=== PATIENT | female | born 1980 | race American Indian/Alaskan Native ===

== ENCOUNTER 2018-06-16 10:07 | Outpatient (CLI) | payer OTHER ==
--- NOTE | 2018-06-17 10:12 | Ultrasound Report ---
BILATERAL BREAST ULTRASOUND: 06/16/18 10:07:00 CLINICAL: 37-year-old with history of bilateral breast tenderness and abnormal bilateral breast ultrasound. She had a negative bilateral mammogram in [place] in July 2016 and a [facility] bilateral breast ultrasound in November 2017 which reported bilateral cysts. A note describes the findings of a 2.5 x 0.9 cm right breast cyst at 8 o'clock and a 1.4 x 0.8 cm ill-defined left hypoechoic lesion at 1 o'clock suspicious for fibroadenoma. The note note also describes two left cysts located at 2 o'clock. COMPARISON: 03/12/18 [facility] mammogram but no earlier mammogram and no [facility] images. FINDINGS: Ultrasound of both breasts(including all four quadrants and the retroareolar area of each breast) was performed. Right: Benign cyst at 7 o'clock 5 cm from the nipple measuring 7 x 6 x 6 mm. Benign cysts at 8 o'clock 4 cm from the nipple measuring 7 x 7 x 5 mm and 5 x 4 mm. No solid mass or shadowing. Ultrasound of the right axilla is negative. Left: Benign cyst 1 o'clock 3 cm from the nipple measuring 1.1 x 1.0 x 0.8 cm. The left breast is otherwise negative. No solid mass or shadowing. Ultrasound of the left axilla is negative. IMPRESSION:Bilateral benign cysts. RECOMMENDATION: Clinical followup and routine mammographic screening.
== END 2018-06-16 10:08 | disposition home or self-care (01) ==
LOC: SPVWC 10:07
PROVIDERS: ATTEND Surgery
DX: N60.01 Solitary cyst of right breast (principal); N60.02 Solitary cyst of left breast

== ENCOUNTER 2019-05-25 14:11 | Outpatient (CLI) | payer OTHER ==
--- NOTE | 2019-05-25 15:26 | Mammography Report ---
DIGITAL SCREENING MAMMOGRAM WITH CAD, 05/25/2019 INDICATION: Routine screening mammography. and breast-feeding. History of bilateral axilla ry fullness. TECHNIQUE: Digital bilateral 2D mammography was obtained in the craniocaudal and mediolateral obliq ue projections. This examination was interpreted with the benefit of Computer-Aided Detection analysi s. COMPARISON: 03/12/2018 FINDINGS: Breast Density: The breasts are heterogeneously dense, which may obscure small masses. There is no evidence of dominant mass, suspicious calcifications or architectural distortion in eithe r breast. A right outer biopsy clip and a few stable low-density calcifications at the clip. No suspi cious axillary lymph nodes. IMPRESSION: No mammographic evidence of malignancy. Follow up recommendation: Routine yearly BI-RADS Category 2: Benign. A "normal" or negative report should not discourage follow up or biopsy of a clinically significant f inding. A written summary of these findings will be mailed to the patient. The patient will be entered into a mammography reporting system which will generate a reminder letter for the patient's next appointmen t at the appropriate interval. The [employer] recommends yearly mammograms starting at age 40 and continuing as l starla as a woman is in good health. Breast MRI is recommended for women with an approximate 20-25% or greater lifetime risk of breast cancer, including women with a strong family history of breast or ova escobar cancer or who have been treated for Hodgkin's disease. Signer Name: Viraj Box MD Signed: 05/25/2019 3:21 PM Workstation Name: [id number]
== END 2019-05-25 14:12 | disposition home or self-care (01) ==
LOC: SPVWC 14:11
PROVIDERS: ATTEND Surgery
DX: Z12.31 Encounter for screening mammogram for malignant neoplasm of breast (principal)
CPT/HCPCS: 77067

== ENCOUNTER 2019-11-30 14:24 | Outpatient (CLI) | payer OTHER ==
--- NOTE | 2019-11-30 15:54 | Ultrasound Report ---
EXAMINATION: Left Limited axillary Ultrasound, 11/30/2019 INDICATION: Recent history of left axillary palpable abnormality, currently not obvious, patient is b reast-feeding COMPARISON: Bilateral breast ultrasound 06/16/2018, bilateral mammogram 05/25/2019 FINDINGS: Targeted ultrasound evaluation was performed of the area of interest. Examination of the le ft axilla shows several small lymph nodes which were not clearly seen on the prior ultrasound though small nodes were present by mammogram in May. The largest node has a short axis diameter of only 6 mm and all have obvious fatty danielle good differentiation between the danielle and the cortices. Several of these nodes show borderline cortical thickening at 3 mm with one node showing 5 mm thickness. IMPRESSION: Nonenlarged left axillary lymph nodes are seen with an appearance suggesting reactive nod es, less likely a neoplastic process. Follow up recommendation: Left axillary ultrasound in 3 months BIRADS: 3: Probably benign Signer Name: Jeremías Menchaca MD Signed: 11/30/2019 3:49 PM Workstation Name: [id number]
== END 2019-11-30 14:25 | disposition home or self-care (01) ==
LOC: SPVWC 14:24
PROVIDERS: ATTEND Surgery
DX: R59.0 Localized enlarged lymph nodes (principal); N60.32 Fibrosclerosis of left breast; N60.31 Fibrosclerosis of right breast

== ENCOUNTER 2020-02-29 14:21 | Outpatient (CLI) | payer OTHER ==
--- NOTE | 2020-03-02 09:19 | Ultrasound Report ---
ULTRASOUND AXILLA BILATERAL LIMITED, 03/01/2020 CLINICAL INFORMATION / INDICATION: Follow-up mildly abnormal axillary lymph nodes. TECHNIQUE: Targeted ultrasound evaluation was performed of the area of interest. COMPARISON: Bilateral axillary ultrasound 11/30/2019 FINDINGS: In the left axilla multiple nodes are again seen with the largest having a short axis diameter of 8 m m. Large fatty danielle are seen. Cortices show only borderline prominence to approximately 3 mm similar to prior study. In the right axilla similar benign-appearing lymph nodes are seen with the largest having a short axi s diameter of 8 mm. Large fatty danielle are seen. Borderline cortical thickening is seen to less than 4 mm. General pattern is similar to prior study without significant change considering differences in m easurement technique. Note: Previous report of 11/30/2019 only listed the left axilla but should have included the right axil la as images were obtained at that time. Patient initially had a left axillary ultrasound on 0 but on discovery of the report discrepancy, I asked for the patient to return today for additional imaging on the right. IMPRESSION: Bilateral axillary nodes continue to have a benign and perhaps slightly reactive appearan ce. I would suggest additional bilateral axillary ultrasound in 6 months but doubt these are signific ant. Follow up recommendation: As above BI-RADS Category 3: Probably Benign. Followup in 6 months. A normal or "negative" report should not preclude biopsy or follow-up of a clinically suspicious find ing. Signer Name: Jeremías Menchaca MD Signed: 03/01/2020 4:47 PM Workstation Name: [id number]
== END 2020-02-29 14:22 | disposition home or self-care (01) ==
LOC: SPVWC 14:21
PROVIDERS: ATTEND Surgery
DX: N60.32 Fibrosclerosis of left breast (principal)

== ENCOUNTER 2020-03-01 16:02 | Outpatient (CLI) | payer OTHER ==
--- NOTE | 2020-03-01 16:52 | Ultrasound Report ---
ULTRASOUND AXILLA BILATERAL LIMITED, 03/01/2020 CLINICAL INFORMATION / INDICATION: Follow-up mildly abnormal axillary lymph nodes. TECHNIQUE: Targeted ultrasound evaluation was performed of the area of interest. COMPARISON: Bilateral axillary ultrasound 11/30/2019 FINDINGS: In the left axilla multiple nodes are again seen with the largest having a short axis diameter of 8 m m. Large fatty danielle are seen. Cortices show only borderline prominence to approximately 3 mm similar to prior study. In the right axilla similar benign-appearing lymph nodes are seen with the largest having a short axi s diameter of 8 mm. Large fatty danielle are seen. Borderline cortical thickening is seen to less than 4 mm. General pattern is similar to prior study without significant change considering differences in m easurement technique. Note: Previous report of 11/30/2019 only listed the left axilla but should have included the right axil la as images were obtained at that time. Patient initially had a left axillary ultrasound on 0 but on discovery of the report discrepancy, I asked for the patient to return today for additional imaging on the right. IMPRESSION: Bilateral axillary nodes continue to have a benign and perhaps slightly reactive appearan ce. I would suggest additional bilateral axillary ultrasound in 6 months but doubt these are signific ant. Follow up recommendation: As above BI-RADS Category 3: Probably Benign. Followup in 6 months. A normal or "negative" report should not preclude biopsy or follow-up of a clinically suspicious find ing. Signer Name: Jeremías Menchaca MD Signed: 03/01/2020 4:47 PM Workstation Name: [id number]
== END 2020-03-01 16:03 | disposition home or self-care (01) ==
LOC: SPVWC 16:02
PROVIDERS: ATTEND Surgery
DX: R92.8 Other abnormal and inconclusive findings on diagnostic imaging of breast (principal)

== ENCOUNTER 2020-06-06 14:39 | Outpatient (CLI) | payer OTHER ==
--- NOTE | 2020-06-07 10:12 | Mammography Report ---
BILATERAL DIGITAL SCREENING MAMMOGRAM WITH CAD with tomosynthesis HISTORY: Annual bilateral mammogram. TECHNIQUE: Routine digital mammographic imaging performed. This examination was interpreted with mirza licona benefit of Computer-aided Detection analysis. Tomosynthesis images were processed and reviewed. COMPARISON: 03/01/2020, 02/29/2020, 11/30/2019, 05/25/2019, 03/12/2018 FINDINGS: Breast Density: scattered fibroglandular appearance of the breast tissue. Digital CC and MLO views demonstrate no mammographic evidence of malignancy. Left upper outer inspector fuel hose ior breast partially obscured oval lesion is noted, possibly a cyst. Biopsy marker in the right lower outer breast is again noted. IMPRESSION: Left upper outer posterior breast partially obscured oval lesion, likely a cyst. A targeted ultrasoun d is recommended for further evaluation. No suspicious findings within the right breast. BIRADS 0-Incomplete: Needs additional imaging evaluation NOTE: WE WILL RECALL THE PATIENT FOR THIS ADDITIONAL EVALUATION. FURTHER INFORMATION: According to the [employer], yearly mammograms are recommend ed starting at age 40 and continuing as long as a woman is in good health. Clinical Breast Exams shou ld be part of a periodic health exam-about every 3 years for women in their 20s and 30s and every yea r for women 40 and over. Breast self exam is an option for women starting in their 20s. Any breast ch radha noted on a breast self exam should be reported promptly to the patient's healthcare provider. Br east MRI is recommended for women with an approximately 20-25% or greater lifetime risk of breast can cer, including women with a strong family history of breast or ovarian cancer and women who have been treated for Hodgkin's disease. A negative Mammography report should not discourage follow up or biopsy of a clinically significant f inding and/or abnormality. Dense breast tissue may obscure small neoplasms. The patient will be entered into a reminder system with a target due date for the next screening mamm ogram. Signer Name: Shaggy Roe MD Signed: 06/07/2020 10:07 AM Workstation Name: [id number]
== END 2020-06-06 14:40 | disposition home or self-care (01) ==
LOC: SPVWC 14:39
PROVIDERS: ATTEND Surgery
DX: Z12.31 Encounter for screening mammogram for malignant neoplasm of breast (principal); N64.89 Other specified disorders of breast
CPT/HCPCS: 77063; 77067

== ENCOUNTER 2020-06-14 15:34 | Outpatient (CLI) | payer OTHER ==
--- NOTE | 2020-06-14 16:32 | Ultrasound Report ---
ULTRASOUND BREAST LEFT LIMITED, 06/14/2020 CLINICAL INFORMATION / INDICATION: FAMILY HX OF BREAST CA Z80.3. Patient presents as a callback from screening mammogram for further evaluation of an oval mass in the left breast. TECHNIQUE: Targeted ultrasound evaluation was performed of the area of interest. COMPARISON: Prior mammogram 06/06/2020 FINDINGS: Corresponding with the oval mass seen mammographically, there is an oval circumscribed hypoechoic mas s in the left breast 2:00 position located 5 cm from the nipple measuring up to 2.6 x 0.7 x 2.9 cm. T he mass is parallel. A small focus of internal vascularity is demonstrated. There is increased throug h transmission. IMPRESSION: 1. An oval circumscribed hypoechoic mass corresponds with the recent mammographic finding. This is co nsidered low suspicion for malignancy and most likely represents a fibroadenoma. However, because it represents a potentially new/increasing mammographic finding, ultrasound-guided biopsy is recommended for confirmation. Follow up recommendation: Biopsy BI-RADS Category 4: Suspicious for Malignancy. A normal or "negative" report should not preclude biopsy or follow-up of a clinically suspicious find ing. Signer Name: Trixie Arreaga MD Signed: 06/14/2020 4:27 PM Workstation Name: [email or web address]
== END 2020-06-14 15:35 | disposition home or self-care (01) ==
LOC: SPVWC 15:34
PROVIDERS: ATTEND Surgery
DX: N63.21 Unspecified lump in the left breast, upper outer quadrant (principal); Z80.3 Family history of malignant neoplasm of breast

== ENCOUNTER 2020-07-11 13:04 | Outpatient (CLI) | payer OTHER ==
--- NOTE | 2020-07-11 15:10 | Mammography Report ---
DIGITAL DIAGNOSTIC MAMMOGRAM WITH CAD CONVENTIONAL, 07/11/2020 CLINICAL INFORMATION / INDICATION: Postbiopsy mammogram following left breast ultrasound-guided biops y. - Post clip Lt TECHNIQUE: Digital left mammographic imaging was performed. This examination was interpreted with the benefit of Computer-aided Detection analysis. COMPARISON: Prior mammogram 06/06/2020 and left breast ultrasound 06/14/2020 FINDINGS: Breast Density: The breasts are heterogeneously dense, which may obscure small masses. Postbiopsy mammogram reveals a biopsy clip appropriately positioned at site of previously described m ass in the posterior upper outer quadrant of the left breast. IMPRESSION: 1. Appropriately positioned biopsy clip following left breast ultrasound-guided biopsy. Follow up recommendation: No recall. Post biopsy imaging. A "normal" or negative report should not discourage follow up or biopsy of a clinically significant f inding. A written summary of these findings will be mailed to the patient. The patient will be entered into a mammography reporting system which will generate a reminder letter for the patient's next appointmen t at the appropriate interval. According to the [employer], yearly mammograms are recommended starting at age 40 and continuing as long as a woman is in good health. Breast MRI is recommended for women with an vishal roximately 20-25% or greater lifetime risk of breast cancer, including women with a strong family his tory of breast or ovarian cancer and women who have been treated for Hodgkin's disease. Signer Name: Trixie Arreaga MD Signed: 07/11/2020 3:05 PM Workstation Name: [id number]
--- NOTE | 2020-07-12 07:21 | Ultrasound Report ---
ULTRASOUND GUIDED LEFT BREAST BIOPSY, 07/11/2020 CLINICAL INFORMATION / INDICATION: INCONCLUSIVE MAMMO R92.2. Patient presents for left breast ultraso und-guided biopsy. COMPARISON: Prior mammogram 06/06/2020 and left breast ultrasound 06/14/2020 PROCEDURE: Risks, benefits, and indications to the procedure were discussed with the patient in detail, includin g bleeding, infection, hematoma formation, and inadequate tissue sampling. The patient agreed to proc eed with both verbal and written consent. A timeout procedure was performed with two patient identifi ers. The breast was prepped and draped in the usual sterile fashion. Lidocaine 1% with and without epineph rine were used for local anesthesia. Under direct ultrasound guidance, multiple core samples were obt ained of the lesion in the left breast 2:00 position located 5 cm from the nipple. A biopsy marker w as then placed. Biopsy device was removed and hemostasis achieved with manual pressure. A sterile skyler ssing was applied to the skin. The patient tolerated the procedure without difficulty. No complications were encountered. Postbiopsy instructions were discussed with the patient and given in writing. Specimens were sent to pathology. IMPRESSION: 1. Technically successful ultrasound guided left breast biopsy. Biopsy results are pending and will be reported in an addendum. Signer Name: Trixie Arreaga MD Signed: 07/11/2020 3:02 PM Workstation Name: [id number]
== END 2020-07-11 13:05 | disposition home or self-care (01) ==
LOC: SPVWC 13:04
PROVIDERS: ATTEND Surgery
DX: N63.21 Unspecified lump in the left breast, upper outer quadrant (principal); R92.2 Inconclusive mammogram; N64.89 Other specified disorders of breast
CPT/HCPCS: 88305